=== PATIENT | female | born 2000 | race American Indian/Alaskan Native ===

== ENCOUNTER 2020-09-11 02:41 | Emergency (ER) | payer BC ==
[2020-09-11 02:48] VITALS: BP 119/78
--- NOTE | 2020-09-11 04:07 | Emergency Department Report ---
ED General Adult HPI - General Chief complaint: Skin/Abscess/Foreign Body Stated complaint: RT ARM PAIN;POSSIBLE INFECTED TATTOO Time Seen by Provider: 09/11/20 04:03 Source: patient Mode of arrival: Ambulatory Limitations: No Limitations - History of Present Illness Initial comments: Patient is a 20-year-old female who presents for right arm erythema and pain after getting tattoo today. Patient states redness itching and mild swelling. There is no fevers chills chills no weeping no open wound. Pain is described at 3/10 pain is exacerbated by palpation. Pain is relieved by nothing tried. - Related Data Previous Rx's Medication Instructions Recorded Last Taken Type Mupirocin [Bactroban 2% OINT] 1 applic TP TID #1 tube 09/11/20 Unknown Rx Naproxen [Naprosyn] 500 mg PO BID PRN #30 tablet 09/11/20 Unknown Rx cephALEXin [Keflex] 500 mg PO Q8HR 7 Days #21 cap 09/11/20 Unknown Rx Allergies Allergy/AdvReac Type Severity Reaction Status Date / Time No Known Allergies Allergy Verified 09/11/20 02:47 ED Review of Systems ROS: Stated complaint: RT ARM PAIN;POSSIBLE INFECTED TATTOO Other details as noted in HPI Constitutional: denies: chills, fever Eyes: denies: eye pain, eye discharge, vision change ENT: denies: ear pain, throat pain Respiratory: denies: cough, shortness of breath, wheezing Cardiovascular: denies: chest pain, palpitations Endocrine: no symptoms reported Gastrointestinal: denies: abdominal pain, nausea, diarrhea Genitourinary: denies: urgency, dysuria, discharge Musculoskeletal: denies: back pain, joint swelling, arthralgia Skin: pruritus. denies: rash, lesions Neurological: denies: headache, weakness, paresthesias Psychiatric: denies: anxiety, depression Hematological/Lymphatic: denies: easy bleeding, easy bruising ED Past Medical Hx - Past Medical History Previous Medical History?: No - Surgical History Past Surgical History?: Yes Additional Surgical History: keloid removal left ear - Social History Smoking Status: Never Smoker Substance Use Type: None - Medications Home Medications: Home Medications Medication Instructions Recorded Confirmed Last Taken Type Mupirocin [Bactroban 2% OINT] 1 applic TP TID #1 tube 09/11/20 Unknown Rx Naproxen [Naprosyn] 500 mg PO BID PRN #30 tablet 09/11/20 Unknown Rx cephALEXin [Keflex] 500 mg PO Q8HR 7 Days #21 cap 09/11/20 Unknown Rx ED Physical Exam - General Limitations: No Limitations General appearance: alert, in no apparent distress - Head Head exam: Present: atraumatic, normocephalic - Eye Eye exam: Present: normal appearance, EOMI Pupils: Present: normal accommodation - ENT ENT exam: Present: mucous membranes moist - Neck Neck exam: Present: normal inspection, full ROM. Absent: tenderness - Respiratory Respiratory exam: Present: normal lung sounds bilaterally. Absent: respiratory distress, wheezes - Cardiovascular Cardiovascular Exam: Present: regular rate, normal rhythm, normal heart sounds. Absent: systolic murmur, diastolic murmur, rubs, gallop - GI/Abdominal GI/Abdominal exam: Present: soft, normal bowel sounds. Absent: distended, tenderness - Rectal Rectal exam: Present: deferred - Extremities Exam Extremities exam: Present: normal inspection, full ROM, tenderness - Expanded Upper Extremity Exam Right Forearm Wrist exam: Present: tenderness, swelling, erythema (tatoo site ). Absent: ecchymosis, deformity, crepidus, tenderness over anatomical snuff box, pain with axial thumb loading Hand Wrist exam: Present: normal inspection, full ROM. Absent: tenderness Vascular: Present: radial pulse - Back Exam Back exam: Present: normal inspection, full ROM. Absent: tenderness - Neurological Exam Neurological exam: Present: alert, oriented X3 - Psychiatric Psychiatric exam: Present: normal affect, normal mood - Skin Skin exam: Present: warm, dry, intact, erythema (right anterior a/c erythema to tatoo site no weeping no open lesion, no fever ). Absent: rash ED Course Vital Signs 09/11/20 02:46 Temperature 98.4 F Pulse Rate 90 Respiratory 16 Rate Blood Pressure 119/78 O2 Sat by Pulse 100 Oximetry ED Medical Decision Making - Medical Decision Making distal pulses inact , no open lesions, no fever, no chills, this is cellulitis plan: keflex, naproxen, bacitracion oint, follow up with pcp in 2-3 days or return to emergency if symptoms worsen. Critical care attestation.: If time is entered above; I have spent that time in minutes in the direct care of this critically ill patient, excluding procedure time. ED Disposition Clinical Impression: Right arm cellulitis Disposition: DC-01 TO HOME OR SELFCARE Is pt being admited?: No Does the pt Need Aspirin: No Condition: Stable Instructions: Cellulitis, Adult Prescriptions: Mupirocin [Bactroban 2% OINT] 1 applic TP TID #1 tube cephALEXin [Keflex] 500 mg PO Q8HR 7 Days #21 cap Naproxen [Naprosyn] 500 mg PO BID PRN #30 tablet PRN Reason: pain Referrals: JANNY LEON MD [Staff Physician] - 3-5 Days Forms: Work/School Release Form(ED) Time of Disposition: 04:13
== END 2020-09-11 04:34 | disposition home or self-care (01) ==
LOC: ED 02:41
DX: L03.113 Cellulitis of right upper limb (principal); Z98.890 Other specified postprocedural states; Z79.899 Other long term (current) drug therapy
CPT/HCPCS: 99282